=== PATIENT | female | born 1945 | race Caucasian/White ===

== ENCOUNTER 2016-08-21 21:46 | Emergency (ER) | payer OTHER, MEDICAID ==
[2016-08-22 02:36] VITALS: BP 150/72
== END 2016-08-22 02:36 | disposition home or self-care (01) ==
LOC: ED 21:46
DX: S46.911A Strain of unspecified muscle, fascia and tendon at shoulder and upper arm level, right arm, initial encounter (principal); S86.811A Strain of other muscle(s) and tendon(s) at lower leg level, right leg, initial encounter; I10 Essential (primary) hypertension; Z79.899 Other long term (current) drug therapy; Z85.59 Personal history of malignant neoplasm of other urinary tract organ; W19.XXXA Unspecified fall, initial encounter; Y93.02 Activity, running; Y92.89 Other specified places as the place of occurrence of the external cause; Y99.8 Other external cause status
CPT/HCPCS: J1885

== ENCOUNTER 2016-08-26 01:43 | Emergency (ER) | payer OTHER, MEDICAID ==
[2016-08-26 03:57] VITALS: BP 136/84
== END 2016-08-26 03:57 | disposition home or self-care (01) ==
LOC: ED 01:43
DX: S39.012A Strain of muscle, fascia and tendon of lower back, initial encounter (principal); S20.219A Contusion of unspecified front wall of thorax, initial encounter; I10 Essential (primary) hypertension; Z79.899 Other long term (current) drug therapy; W01.0XXA Fall on same level from slipping, tripping and stumbling without subsequent striking against object, initial encounter; Y93.89 Activity, other specified; Y99.8 Other external cause status; Y92.89 Other specified places as the place of occurrence of the external cause